=== PATIENT | male | born 1995 | race Caucasian/White ===

== ENCOUNTER 2018-03-26 03:24 | Emergency (ER) | payer OTHER ==
[~2018-03-26] VITALS: Ht 177.8 cm; Wt 81.7 kg
[2018-03-26 03:52] LABS: ABSOLUTE BASOPHILS 0.1 thou/uL (0.0-0.2); ABSOLUTE EOSINOPHILS 0.1 thou/uL (0.0-0.7); ABSOLUTE NEUTROPHILS 5.1 thou/uL (1.6-8.1); BASOPHILS 0.5 %; EOSINOPHILS 0.6 %; HEMATOCRIT 45.6 % (42.0-52.0); HEMOGLOBIN 15.2 gm/dL (14.0-18.0); LYMPHOCYTES 44.9 %; MCH 29.9 pg (26.0-34.0); MCHC 33.4 g/dL (28.0-37.0); MCV 89.5 fL (80.0-100.0); NUCLEATED RBCS 0 /100WBC; PLATELET COUNT* 372 thou/uL (150-400); RBC 5.09 mil/uL (4.50-6.00); RDW-CV 12.5 % (10.5-14.5); WBC 11.2 thou/uL (4.0-11.0)
[2018-03-26 04:01] LABS: ALBUMIN 4.5 g/dL (3.4-5.0); CALCIUM 8.9 mg/dL (8.5-10.1); TOTAL BILIRUBIN 0.9 mg/dL (<0.1-1.0); TOTAL PROTEIN 8.6 g/dL (6.4-8.2)
[2018-03-26 04:02] LABS: POTASSIUM 2.7 mmol/L (3.5-5.1)
[2018-03-26 04:11] LABS: URINE BILIRUBIN NEGATIVE (Negative); URINE BLOOD NEGATIVE (Negative); URINE CLARITY CLEAR; URINE COLOR YELLOW; URINE GLUCOSE-RANDOM NEGATIVE (Negative); URINE KETONES NEGATIVE (Negative); URINE LEUKOCYTES-REFLEX TRACE (Negative); URINE NITRITE-REFLEX NEGATIVE (Negative); URINE PROTEIN NEGATIVE (Negative); URINE SPECIFIC GRAVITY 1.025 (1.005-1.030); URINE UROBILINOGEN 0.2 E.U./dl (0.2-1.0)
[2018-03-26 04:17] LABS: AMP/METHAMP Negative (Negative); BARBITURATES Negative (Negative); BENZODIAZEPINES Negative (Negative); COCAINE Negative (Negative); METHADONE Negative (Negative); OPIATES Negative (Negative); PCP Negative (Negative); THC POSITIVE (Negative)
[2018-03-26 04:22] LABS: BACTERIA-REFLEX None Seen /HPF (None Seen); CRYSTALS None Seen /LPF (None Seen); HYALINE CASTS 0-3 Few /LPF (None Seen); MUCUS 0-3 Light strn/LPF (None Seen); SQUAMOUS 0-3 Few /LPF (0-3); URINE RBC None Seen /HPF (0-2); URINE WBC-REFLEX 0-5 Rare /HPF (0-5)
[2018-03-26] MEDS ORDERED: POTASSIUM20 PO (08:11)
[2018-03-26 08:20] VITALS: BP 109/60
--- NOTE | 2018-03-26 13:50 | EKG ---
[place] [address] ELECTROCARDIOGRAM REPORT Name: RAN HANSEN Room: [facility]#: [id number] Admission: 03/26/18 Attend Phys: Discharge: 03/26/18 Date of : [birth year] Report #: [id number] THIS REPORT FOR: //name// [facility] ED Test Date: 2018-03-26 Test Time: 03:28:50 Pat Name: RAN GARZA Department: Room: Gender: [place] Operator: GREG : 1995 Requested By: Edith Thorpe Order Number: [id number] MD: Silver Mcdaniel Measurements Intervals [place] Rate: 106 P: 33 NV: 154 QRS: 57 QRSD: 93 T: 10 QT: 322 QTc: 428 Interpretive Statements Sinus tachycardia Probable left atrial enlargement Compared to ECG 11/13/2013 20:38:02 Sinus rhythm no longer present Electronically Signed On 03-26-2018 13:50:26 [employer] by Silver Mcdaniel [email or web address] <ELECTRONICALLY SIGNED> By: Silver Mcdaniel MD, [facility] 03/26/18 1350 [id number] Silver Mcdaniel MD, [facility] /EPI
== END 2018-03-26 08:21 | disposition home or self-care (01) ==
LOC: M.ERS 03:24
PROVIDERS: Personal Emergency Response Attendant
DX: F10.129 Alcohol abuse with intoxication, unspecified (principal); Y90.6 Blood alcohol level of 120-199 mg/100 ml; E87.6 Hypokalemia; I95.9 Hypotension, unspecified